=== PATIENT | male | born 2000 | race Caucasian/White ===

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

== ENCOUNTER 2023-11-30 10:13 | Outpatient (REF) | payer BC, SELFPAY ==
[2023-11-30 10:30] LABS: Abs Immature Grans 0.02 10^3/uL (0.0-0.06); Absolute Basophil Count 0.04 10^3/uL (0.0-0.2); Absolute Eosinophil Count 0.14 10^3/uL (0.0-0.7); Absolute Lymphocyte Count 1.26 10^3/uL (1.2-3.4); Absolute Monocyte Count 0.74 10^3/uL (0.1-0.8); Absolute Neutrophil Count 4.29 10^3/uL (1.2-6.7); Basophils % 0.6; Eosinophils % 2.2; HCT 40.9 % (40.0-50.0); HGB 14.2 g/dL (13.5-17.5); Immature Grans % 0.3; Lymphocytes % 19.4; MCH 28.3 pg (27.0-33.0); MCHC 34.7 % (32.0-36.0); MCV 82 fL (80-95); MPV 9.5 fL (8.0-11.0); Monocytes % 11.4; Neutrophils % 66.1; Platelet Count 224 10^3/uL (130-400); RBC 5.01 10^6/uL (4.36-5.78); RDW-SD 35.8 fL; WBC 6.49 10^3/uL (4.4-10.8)
[2023-11-30 10:51] LABS: ALT 35 U/L (16-63); AST 24 U/L (15-37); Albumin 4.1 g/dL (3.4-5.0); Alkaline Phosphatase 105 U/L (46-116); Anion Gap 7.1 mmol/L (3-11); BUN 17 mg/dL (7-18); Bilirubin, Total 0.4 mg/dL (0.2-1.0); CO2 30.9 mmol/L (21.0-32.0); CREATININE 1.6 mg/dL (0.70-1.30); Calcium 9.4 mg/dL (8.5-10.1); Calculated LDL 69 mg/dL (<100); Chloride 105 mmol/L (98-107); Cholesterol 142 mg/dL (<200); Estimated GFR 62.48 (mL/min/1.73m2); Glucose 103 mg/dL (74-106); HDL Cholesterol 42 mg/dL (40-60); Potassium 3.9 mmol/L (3.5-5.1); Sodium 143 mmol/L (136-145); Total Protein 7.4 g/dL (6.4-8.2); Triglyceride 159 mg/dL (<150)
[2023-11-30 15:07] LABS: COMMENT (LAB VIEW ONLY) 49.02 mg/dL; PROTEIN < 6.0 mg/dL
[2023-12-01 09:45] LABS: Calcium (Random Urine) 2.6 mg/dL (See Note)
== END 2023-11-30 10:14 | disposition home or self-care (01) ==
LOC: LBN 10:13
PROVIDERS: PCP Pediatrics; Visit Provider Pediatrics
DX: I10 Essential (primary) hypertension (principal); R10.31 Right lower quadrant pain; R94.4 Abnormal results of kidney function studies
CPT/HCPCS: 36415; 80053; 80061; 82340; 82565; 84156; 85025